=== PATIENT | male | born 1965 | race African-American/Black ===

== ENCOUNTER 2018-06-21 15:30 | Emergency (ER) | payer OTHER ==
[~2018-06-21] VITALS: Ht 185.4 cm; Wt 115.8 kg
[2018-06-21] MEDS ORDERED: AMLODIPINE BESY10 MG PO (15:36)
[2018-06-21] MEDS ORDERED: COZAAR 25 MG TA25 M1 PO (15:36)
[2018-06-21] MEDS ORDERED: CARDURA4 MG PO (15:36)
[2018-06-21] MEDS ORDERED: IBUPROFEN 800800 M1 PO (16:53)
[2018-06-21] MEDS ORDERED: ROBAXIN 750 MG750 M1 PO (16:58)
[2018-06-21 17:07] VITALS: BP 180/85
== END 2018-06-21 17:08 | disposition home or self-care (01) ==
LOC: M.ERS 15:30
DX: M54.2 Cervicalgia (principal); R51 Headache; M54.5 Low back pain; I10 Essential (primary) hypertension